=== PATIENT | female | born 1980 | race African-American/Black ===

== ENCOUNTER 2018-01-09 12:03 | Emergency (ER) | payer OTHER ==
[~2018-01-09] VITALS: Ht 170.2 cm; Wt 74.5 kg
[2018-01-09 14:03] LABS: HEMOGLOBIN. 12.2 g/dL (12.0-16.0); MEAN CORPUSCULAR HEMOGLOBIN 27.9 pg (28.0-32.0); MEAN CORPUSCULAR VOLUME 84.7 fL (81.0-99.0); RED BLOOD CELL COUNT 4.37 mill/uL (4.2-5.4); RED CELL DISTRIBUTION WIDTH 13.2 % (11.6-14.6)
[2018-01-09 14:07] LABS: CHLORIDE 105 mEq/L (98-107)
[2018-01-09 14:31] LABS: B-HCG QUANTITATIVE 74173 mIU/mL (<3)
[2018-01-09] MEDS ORDERED: ACETAMINOPHEN 325MG TABLET PO ONE (14:45)
[2018-01-09 15:11] LABS: MEAN PLATELET VOLUME 9.5 fl (7.4-10.4); PLATELET 236 x1000/uL (130-400); PLATELET ESTIMATE NORMAL
[2018-01-09 15:53] LABS: CLARITY URINE CLEAR (CLEAR); COLOR URINE YELLOW (YELLOW); KETONES URINE NEGATIVE (NEGATIVE); LEUKOCYTE ESTERASE URINE NEGATIVE (NEGATIVE); NITRITE URINE NEGATIVE (NEGATIVE); OCCULT BLOOD URINE NEGATIVE (NEGATIVE); PH URINE 6.5 (4.5-8.0); PROTEIN URINE NEGATIVE (NEGATIVE); SPECIFIC GRAVITY URINE 1.018 (1.005-1.030)
[2018-01-09 16:03] LABS: *AMPHETAMINES SCREEN URINE NEGATIVE (NEGATIVE); *BARBITURATES SCREEN URINE NEGATIVE (NEGATIVE); *BENZODIAZEPINES SCREEN URINE NEGATIVE (NEGATIVE); *COCAINE SCREEN URINE NEGATIVE (NEGATIVE)
[2018-01-09 16:04] LABS: CANNABINOID URINE SCREEN NEGATIVE (NEGATIVE); METHADONE URINE SCREEN NEGATIVE (NEGATIVE); OPIATES URINE SCREEN NEGATIVE (NEGATIVE); PHENCYCLIDINE URINE SCREEN NEGATIVE (NEGATIVE)
[2018-01-09 16:47] VITALS: BP 135/65
== END 2018-01-09 17:00 | disposition home or self-care (01) ==
LOC: ER 12:03
DX: O20.0 Threatened abortion (principal); Z3A.12 12 weeks gestation of pregnancy
CPT/HCPCS: 36415; 76801; 80053; 80305; 81003; 81025; 84702; 85025; 86850; 86900; 87086; 99285